=== PATIENT | female | born 1955 | race Caucasian/White ===

== ENCOUNTER 2018-01-28 07:23 | Emergency (ER) | payer OTHER ==
[2018-01-28] MEDS ORDERED: HYDROCODONE/ACETAMINOPHEN 5/325 MG TAB ONE (07:42)
[2018-01-28] MEDS ORDERED: ONDANSETRON 4 MG TABLET ONE (07:42)
== END 2018-01-28 09:04 | disposition home or self-care (01) ==
LOC: EDH 07:23
DX: M25.562 Pain in left knee (principal); I89.0 Lymphedema, not elsewhere classified; M79.604 Pain in right leg; E66.9 Obesity, unspecified; Z68.45 Body mass index [BMI] 70 or greater, adult
CPT/HCPCS: 73562; 73590; 93971; 99284; Q0162